=== PATIENT | female | born 1950 | race Two or more races ===

== ENCOUNTER → 2017-11-28 | Outpatient (CLI) | payer MEDICARE ==
[~2017-11-28] VITALS: Ht 154.9 cm; Wt 83.0 kg
[~2017-11-28] MED LIST: ADENOSINE 70 MG in GIVE UN-DILUTED 0 ML IV ONE; ADENOSINE 90 MG/30 ML INJ IV ONE
[2017-11-28 12:02] LABS: Basophils # (auto) 0 uL; Basophils % (auto) 0.7 % (0.0-2.0); Eosinophils # (auto) 0.2 uL; Eosinophils % (auto) 3.4 % (0.0-7.0); Hematocrit 43.7 % (36.0-46.0); Hemoglobin 14.7 g/dL (12.2-16.2); Lymphocytes # (auto) 2.6 uL; Lymphocytes % (auto) 42.8 % (10.0-50.0); Mean Corpuscular Hemoglobin 30.2 pg (28.0-32.0); Mean Corpuscular Hgb Conc. 33.7 g/dL (32.0-36.0); Mean Corpuscular Volume 89.7 fL (80.0-100.0); Monocytes # (auto) 0.5 uL; Monocytes % (auto) 8.1 % (0.0-12.0); Neutrophils # (auto) 2.7 uL; Nucleated Red Blood Cells % 0.4 %; Platelet Count (auto) 235 10^3/uL (140-450); Red Blood Cells 4.88 10^6/uL (4.0-5.20); Red Cell Distribution Width 12.4 % (11.8-14.3)
[2017-11-28 12:10] LABS: Urine Blood Negative /uL (Negative); Urine Specific Gravity 1.002 (1.001-1.035)
[2017-11-28 12:16] LABS: BUN/Creatinine Ratio 16.7; Bilirubin, Total 0.7 mg/dL (0.2-1.0); Potassium 3.8 mmol/L (3.5-5.1); Total Protein 8.5 g/dL (6.4-8.2)
[2017-11-28 12:22] LABS: Free T4 (Free Thyroxine) 0.99 ng/dL (0.89-1.76)
== END | disposition home or self-care (01) ==
LOC: Rad HDHVI 08:23
PROVIDERS: ATTEND Internal Medicine Cardiovascular Disease
DX: I07.1 Rheumatic tricuspid insufficiency (principal); M32.10 Systemic lupus erythematosus, organ or system involvement unspecified; M35.00 Sjogren syndrome, unspecified; E03.9 Hypothyroidism, unspecified; E11.9 Type 2 diabetes mellitus without complications; E55.9 Vitamin D deficiency, unspecified; D51.9 Vitamin B12 deficiency anemia, unspecified; N39.0 Urinary tract infection, site not specified; I10 Essential (primary) hypertension; E78.5 Hyperlipidemia, unspecified; R74.8 Abnormal levels of other serum enzymes
CPT/HCPCS: 36415; 78452; 80053; 80061; 81003; 82306; 82607; 83036; 84439; 84443; 85025; 86225; 86235; 93005; 93306; 96374; 96375; A9500; J0153

== ENCOUNTER → 2017-12-12 | Outpatient (CLI) | payer MEDICARE ==
[~2017-12-12] MED LIST changes: -ADENOSINE 70 MG in GIVE UN-DILUTED 0 ML IV ONE; -ADENOSINE 90 MG/30 ML INJ IV ONE; +IOHEXOL 350 MG/ML 100ML IJ ONE
[2017-12-12 09:00] VITALS: BP_SYST 138; BP_SYST 153; BP_DIAS 60; BP_DIAS 78
[2017-12-12 09:40] VITALS: BP 121/76
[2017-12-12 10:10] VITALS: BP 148/67
[2017-12-18 12:48] LABS: Hepatitis B Surface Antibody Negative
[2017-12-18 13:17] LABS: Hepatitis A Total Antibody Negative
[2017-12-18 13:35] LABS: Hepatitis B Surface Antigen Negative (Negative)
[2017-12-18 13:36] LABS: Hepatitis B Core Total AB Negative
[2017-12-20 13:07] LABS: Hepatitis C Antibody Negative (Negative)
== END | disposition home or self-care (01) ==
LOC: Rad HDHVI 09:09
PROVIDERS: ATTEND Internal Medicine Cardiovascular Disease
DX: M79.3 Panniculitis, unspecified (principal); R16.0 Hepatomegaly, not elsewhere classified; R74.8 Abnormal levels of other serum enzymes; B99.9 Unspecified infectious disease; A53.9 Syphilis, unspecified; E83.01 Wilson's disease; Z20.5 Contact with and (suspected) exposure to viral hepatitis
CPT/HCPCS: 36415; 82390; 82565; 86225; 86592; 86644; 86645; 86704; 86706; 86708; 86803; 87340; G0463; Q9967; 74177

== ENCOUNTER → 2018-11-11 | Outpatient (CLI) | payer MEDICARE ==
[~2018-11-11] VITALS: Ht 154.9 cm; Wt 77.6 kg
[~2018-11-11] MED LIST changes: +ADENOSINE 65 MG in GIVE UN-DILUTED 0 ML IV ONE; +ADENOSINE 90 MG/30 ML INJ IV ONE; -IOHEXOL 350 MG/ML 100ML IJ ONE
== END | disposition home or self-care (01) ==
LOC: Rad HDHVI 08:41
PROVIDERS: ATTEND Internal Medicine Cardiovascular Disease
DX: I08.1 Rheumatic disorders of both mitral and tricuspid valves (principal); E11.9 Type 2 diabetes mellitus without complications; I20.0 Unstable angina; E78.00 Pure hypercholesterolemia, unspecified; R06.01 Orthopnea; K74.3 Primary biliary cirrhosis
CPT/HCPCS: 78452; 93005; 93306; 96374; 96375; A9500; J0153

== ENCOUNTER → 2019-12-14 | Outpatient (CLI) | payer MEDICARE ==
[~2019-12-14] VITALS: Ht 154.9 cm; Wt 74.8 kg
== END | disposition home or self-care (01) ==
LOC: Rad HDHVI 12:59
PROVIDERS: ATTEND Internal Medicine Cardiovascular Disease
DX: I10 Essential (primary) hypertension (principal); R06.02 Shortness of breath; R07.89 Other chest pain
CPT/HCPCS: 78452; 93017; 93306; 96374; A9500

== ENCOUNTER → 2020-07-26 | Outpatient (CLI) | payer MEDICARE ==
[2020-07-26 11:42] LABS: Urine Blood Negative /uL (Negative); Urine Specific Gravity 1.003 (1.001-1.035)
[2020-07-26 11:49] LABS: Basophils # (auto) 0.1 10 ^3/uL (0-0.2); Basophils % (auto) 0.9 % (0.0-2.0); Eosinophils # (auto) 0.1 10 ^3/uL (0-0.8); Eosinophils % (auto) 1.9 % (0.0-7.0); Hematocrit 37.8 % (36.0-46.0); Hemoglobin 13.1 g/dL (12.2-16.2); Lymphocytes # (auto) 2.3 10 ^3/uL (0.4-5.4); Lymphocytes % (auto) 40.2 % (10.0-50.0); Mean Corpuscular Hemoglobin 29.1 pg (28.0-32.0); Mean Corpuscular Hgb Conc. 34.8 g/dL (32.0-36.0); Mean Corpuscular Volume 83.7 fL (80.0-100.0); Monocytes # (auto) 0.4 10 ^3/uL (0-1.3); Monocytes % (auto) 7.6 % (0.0-12.0); Neutrophils # (auto) 2.9 10 ^3/uL (1.6-8.6); Neutrophils % (auto) 49.4 % (37.0-80.0); Nucleated Red Blood Cells % 0.1 %; Platelet Count (auto) 256 10^3/uL (140-450); Red Blood Cells 4.52 10^6/uL (4.0-5.20); Red Cell Distribution Width 14.4 % (11.8-14.3); White Blood Cell 5.8 10^3/uL (4.4-10.8)
[2020-07-26 11:57] LABS: Free T4 (Free Thyroxine) 0.88 ng/dL (0.89-1.76)
[2020-07-26 12:17] LABS: Potassium 4.2 mmol/L (3.5-5.1)
[2020-07-26 12:31] LABS: Albumin 3.4 g/dL (3.4-5.0); BUN/Creatinine Ratio 16.7; Bilirubin, Total 0.4 mg/dL (0.2-1.0); Calcium 8.9 mg/dL (8.5-10.1); Total Protein 7.6 g/dL (6.4-8.2)
== END | disposition home or self-care (01) ==
LOC: Rad HDHVI 08:36
PROVIDERS: ATTEND Internal Medicine Cardiovascular Disease
DX: M47.814 Spondylosis without myelopathy or radiculopathy, thoracic region (principal); M25.78 Osteophyte, vertebrae; M48.04 Spinal stenosis, thoracic region; D51.3 Other dietary vitamin B12 deficiency anemia; I10 Essential (primary) hypertension; E11.9 Type 2 diabetes mellitus without complications; E55.9 Vitamin D deficiency, unspecified; D64.9 Anemia, unspecified; R00.2 Palpitations; R53.1 Weakness; R30.0 Dysuria; M54.9 Dorsalgia, unspecified
CPT/HCPCS: 36415; 72128; 80053; 80061; 81003; 82306; 82607; 83036; 84439; 84443; 85025

== ENCOUNTER → 2021-05-29 | Outpatient (CLI) | payer MEDICARE | END | disposition home or self-care (01) | LOC: Rad HDHVI 11:08 | PROVIDERS: ATTEND Internal Medicine Cardiovascular Disease | DX: I34.0 Nonrheumatic mitral (valve) insufficiency (principal); I35.0 Nonrheumatic aortic (valve) stenosis; E78.5 Hyperlipidemia, unspecified | CPT/HCPCS: 93306 ==

== ENCOUNTER → 2022-11-30 | Outpatient (CLI) | payer MEDICARE | END | disposition home or self-care (01) | LOC: Rad HDHVI 10:42 | PROVIDERS: ATTEND Internal Medicine Cardiovascular Disease | DX: I08.1 Rheumatic disorders of both mitral and tricuspid valves (principal); R00.2 Palpitations; R06.02 Shortness of breath | CPT/HCPCS: 93306 ==

== ENCOUNTER → 2022-12-11 | Outpatient (CLI) | payer MEDICARE | END | disposition home or self-care (01) | LOC: Rad HDHVI 13:55 | PROVIDERS: ATTEND Internal Medicine Cardiovascular Disease | DX: M19.011 Primary osteoarthritis, right shoulder (principal); M25.511 Pain in right shoulder; M25.532 Pain in left wrist | CPT/HCPCS: 73030; 73110 ==

== ENCOUNTER → 2022-12-14 | Outpatient (CLI) | payer MEDICARE ==
[~2022-12-14] VITALS: Ht 154.9 cm; Wt 72.1 kg
== END | disposition home or self-care (01) ==
LOC: Rad HDHVI 09:16
PROVIDERS: ATTEND Internal Medicine Cardiovascular Disease
DX: R07.89 Other chest pain (principal); I10 Essential (primary) hypertension; R06.00 Dyspnea, unspecified; R06.02 Shortness of breath; E78.5 Hyperlipidemia, unspecified; Z82.49 Family history of ischemic heart disease and other diseases of the circulatory system; Z79.899 Other long term (current) drug therapy
CPT/HCPCS: 78452; 93017; 96374; A9500

== ENCOUNTER → 2024-02-12 | Outpatient (CLI) | payer MEDICARE | END | disposition home or self-care (01) | LOC: Rad HDHVI 09:57 | PROVIDERS: ATTEND Internal Medicine Cardiovascular Disease | DX: M85.9 Disorder of bone density and structure, unspecified (principal); I10 Essential (primary) hypertension; R00.2 Palpitations; M81.0 Age-related osteoporosis without current pathological fracture | CPT/HCPCS: 77078; 93306; 93880 ==

== ENCOUNTER → 2024-10-12 | Outpatient (CLI) | payer MEDICARE ==
[~2024-10-12] VITALS: Ht 154.9 cm; Wt 71.2 kg
--- NOTE | 2024-10-16 12:42 | DVHSR ---
APPROVED REPORT Exam: Nuclear Stress Test Indication: Dyspnea Ht: 5 ft 1 in Wt: 157 lbs BSA: 1.70 m2 HR: 66 bpm BP: 150/64 mmHg BMI: 29.66 Rhythm: NSR Medical History Medical History: HTN, Hypercholesterolemia Medications: Lisinopril, Wixela, Flexeril, Synthroid, Ketoconazole, Ibuprofen, Vit D, Montelukast Allergies: Penicillin, Sulfa, Codeine, Keflex Cardiac Risk Factors: Family Hx of CAD Stress Test Details Stress Test: Exercise stress testing was performed using a Gamal protocol. HR Resting HR: 66 bpmMax Heart Rate (APMHR): 149.032052 bpm Max HR Achieved: 142 bpmTarget HR (85% APMHR): 126.674510 bpm % of APMHR: 95.30 Recovery HR: 74 bpm HR response to stress: Normal HR response to stress BP Resting BP: 150/64 mmHg Max BP: 180/71 mmHg Recovery BP: 136/66 mmHg BP response to stress: Exaggerated response ECG Resting ECG: Sinus Rhythm Stress ECG: Sinus Tachycardia Arrhythmia: PACs, PVCs Recovery ECG: Sinus Rhythm Clinical Reason for Termination: Fatigue, Right knee pain Stress Symptoms: Fatigue Exercise duration: 4 min 20 sec Exercise capacity: 7.0 METs Stress ECG Conclusion NON ISCHEMIC CLINICAL RESPONSE NON ISCHEMIC ECG RESPONSE NO PERFUSION DEFECT NOTED DURING STRESS CARDIOLITE EF >55% LESS THAN 10% LIKELIHOOD FOR STRESS INDUCED ISCHEMIA NM EXAM: Myocardial Perfusion REST/STRESS Imaging Protocol: Rest Tc-99m/Stress Tc-99m 1 day Resting Data Rest SPECT myocardial perfusion imaging was performed in supine position 30 minutes following the int ravenous injection of 10.9 mCi of Tc-99m Sestamibi. Time of rest injection: 0940 Date: 10/12/2024 Time of rest imagin Date: 10/12/2024 Administration Route: IV Administration Site: Right AC Exercise Stress At peak stress, the patient was injected intravenously with 29 mCi of Tc-99m Sestamibi. Time of stress injection: 1113 Date: 10/12/2024 Time of stress imagin Date: 10/12/2024 Administration Route: IV Administration Site: Right AC Heart Rate at time of stress injection: 137 bpm. Patient continued to exercise for 1 minute(s). Gated Stress SPECT was performed 15 minutes after stress injection. The images were gated to evaluate regional wall motion and calculate left ventricular ejection fracti on. Comments Cardiolite injection 3 minutes, 26 seconds into test. Study Data Post stress, the left ventricular ejection was 67%.. Nuclear Conclusion NON ISCHEMIC CLINICAL RESPONSE NON ISCHEMIC ECG RESPONSE NO PERFUSION DEFECT NOTED DURING STRESS CARDIOLITE EF >55% LESS THAN 10% LIKELIHOOD FOR STRESS INDUCED ISCHEMIA
== END | disposition home or self-care (01) ==
LOC: Rad HDHVI 09:21
PROVIDERS: ATTEND Internal Medicine Cardiovascular Disease
DX: I49.1 Atrial premature depolarization (principal); I49.3 Ventricular premature depolarization; R00.0 Tachycardia, unspecified; R06.00 Dyspnea, unspecified; I10 Essential (primary) hypertension; J45.909 Unspecified asthma, uncomplicated; E78.00 Pure hypercholesterolemia, unspecified; R06.02 Shortness of breath; Z88.0 Allergy status to penicillin; Z88.1 Allergy status to other antibiotic agents; Z88.2 Allergy status to sulfonamides; Z88.5 Allergy status to narcotic agent; Z82.49 Family history of ischemic heart disease and other diseases of the circulatory system
CPT/HCPCS: 78452; 93017; A9500; 96374